=== PATIENT | female | born 1990 | race Caucasian/White ===

== ENCOUNTER → 2020-06-11 16:28 | Outpatient (CLI) | payer MEDICAID, SELFPAY ==
[2016-07-15 16:40] VITALS: BMI 39.2
[2020-06-12 09:53] LABS: HIV - WCH Non-Reactive (Nonreactive); Hepatitis B Surface Antigen Non-Reactive (Nonreactive); Hepatitis C Antibody Non-Reactive (Nonreactive)
[2020-06-13 11:06] LABS: Rapid Plasmin Reagin (RPR) NONREACTIVE (NONREACTIVE)
[2020-06-14 03:06] LABS: Chlamydia By Nucleic Acid AMP Negative (Negative)
[2020-06-14 04:42] LABS: Gonococcus By Nucleic Acid AMP Negative (Negative)
[2020-06-21 16:22] LABS: HPV Reflexed? NOT INDICATED
== END ==
PROVIDERS: Visit Provider Obstetrics & Gynecology
DX: Z12.4 Encounter for screening for malignant neoplasm of cervix (principal); Z11.3 Encounter for screening for infections with a predominantly sexual mode of transmission
CPT/HCPCS: 36415; 86592; 86703; 86803; 87340; 87491; 87591; 88175; G0145

== ENCOUNTER 2020-08-23 11:37 | Emergency (ER) | payer MEDICAID, SELFPAY ==
[2020-08-23 11:38] VITALS: BP 166/98; PULSE 101; RESP 16; TEMP 36.6; O2SAT 97; BMI 29.9
[2020-08-23 11:57] LABS: Bacteria 0 SEEN /hpf (None Seen); Mucous, Urine 0 SEEN /hpf (<or=2+); Red Blood Cells-Urine 0 SEEN /hpf (0-5); White Blood Cells 0 SEEN /hpf (0-5)
[2020-08-23 12:06] LABS: Color, Urine Yellow (Yellow); Glucose, Dipstick Normal (Normal); Ketone-Dipstick 5 mg/dl (Negative); Leukocyte Esterase-Dipstick Negative /ul (Negative); Nitrite-Dipstick Negative (Negative); Occult Blood-Urine Negative /ul (Negative); Protein-Dipstick Negative (Negative); Specific Gravity, Urine 1.005 (1.002-1.030); Urine Bilirubin Dipstick Negative (Negative); Urine Clarity Sl. Cloudy (Clear); Urine Urobilinogen Normal (Normal); Urine pH 6.5 (5.0 - 8.0)
[2020-08-23 12:13] LABS: Squamous Epithelial Cells - UA 0-5 SEEN /hpf (5-10)
[2020-08-23 12:14] LABS: Internal QC Validated? YES +Cl - CLEAR BKGD; Pregnancy, Urine Negative Negative
--- NOTE | 2020-08-23 12:28 | US_ITS ---
STUDY: ULTRASOUND OF THE FEMALE PELVIS - COMPLETE REASON FOR EXAM: Female, 29 years old. Pain RLQ LMP: 08/09/2020. TECHNIQUE: Transvaginal TECHNICAL QUALITY: Adequate. COMPARISON: None. FINDINGS: The uterus is anteverted and is in a midline position. The uterus measures 10 cm x 6.6 cm x 5.3 cm. Normal uterine cervix. The endometrium measures 4.0 mm in thickness, and is hyperechoic. There is no demonstrated endometrial mass. There is no demonstrated myometrial mass. I.U.D. - The patient does not have an I.U.D. The right ovary is visualized. The right ovary measures 3.2 cm x 2.3 cm x 2.0 cm. There is no right ovarian cyst or ovarian mass. There is no visualized right adnexal mass or complex lesion. There is normal arterial and normal venous vascularity. The left ovary is visualized. The left ovary measures 3.2 cm x 2.9 cm x 2.6 cm. There is no left ovarian cyst or ovarian mass. There is no visualized left adnexal mass or complex lesion. There is normal arterial and normal venous vascularity. There is no fluid in the cul-de-sac. US/Transvaginal Non- IMPRESSION: Normal female pelvis. Electronically Signed: Wood Olvera, at 14:25 EDT , Service support ,
[2020-08-23 12:56] LABS: Absolute Lymphocyte Count 2.28 X10^3/uL (0.83-4.51); Absolute Neutrophil Count 4.3 X10^3/uL (2.0-7.7); Basophil# 0.03 X10^3/uL; Basophil% 0.4 % (0-1); Eosinophil# 0.04 X10^3/uL; Eosinophils% 0.6 % (0-5); Hematocrit 46.2 % (37-47); Lymphocyte # 2.28 X10^3/ul (4.0); Lymphocyte % 31.6 % (19-41); Mean Corp Hgb Conc 32.5 g/dL (32-36); Mean Corpuscular Hgb 29.9 pg (27.0-32.0); Mean Corpuscular Volume 92.2 fL (81-99); Mean Platelet Vol. 9.6 fl (6.2-12.0); Monocyte# 0.56 X10^3/uL; Monocyte% 7.8 % (0-10); NRBC Flagged by Analyzer 0 % (0-5); Neutrophil # 4.29 X10^3/uL (2.7-7.7); Neutrophil % 59.3 % (47-70); Platelet Count 235 K/mm3 (150-450); RBC Distribution Width CV 13.2 % (11.6-14.6); RBC Distribution Width SD 44.9 fl (35.1-43.9); Red Blood Count 5.01 M/mm3 (4.2-5.4); White Blood Count 7.2 K/mm3 (4.4-11.0)
--- NOTE | 2020-08-23 12:57 | ED.VIS.FEGU ---
History of Present Illness Informant: Patient Pain: Pelvic Pain Onset: Yesterday Context: Gradual Onset Timing: Continuous Quality: Cramping Location: RLQ Current Severity: Moderate Maximum Severity: Moderate Worsened by: Movement Issue: Negative for: Vaginal bleeding, Passing clots, Passing tissue Associated Symptoms: Dysuria, Frequency, Urgency. Negative for: Hematuria Test: Negative Sexually: Active, Single Partner Control: No control Narrative: 21-year-old female presents with 2 days of burning with urination frequency and urgency. No vaginal bleeding or discharge. No fevers. No vomiting or diarrhea. No abdominal pain. No back pain. No history of similar. No history of kidney stones. She did have unprotected intercourse last week. Prior similar symptoms: No Recent Illness/Hospitalization: No <Esteban Eldridge - Last Filed: 08/23/20 14:33> <Rick Fisher - Last Filed: 08/23/20 16:06> Chief Complaint: Complaint Past Medical History Prior records reviewed: Yes Past Medical History: None Surgical History: no surgical history Lives: With Family Smoking Status: Former smoker Alcohol: Occasional Drugs: None <Esteban Eldridge - Last Filed: 08/23/20 14:33> <Rick Fisher - Last Filed: 08/23/20 16:06> - Allergies and Home Meds Allergies/Adverse Reactions: Allergies No Known Allergies Allergy (Verified 08/23/20 11:40) Primary Care Physician: Marissa Ross MD [STAFF PHYSICIAN] - Review of Systems All systems negative except as indicated General: Denies: Chills, Fever, Sweats Eyes: Denies: Visual changes - bilaterally, Diplopia ENT: Denies: Rhinorrhea, Sore throat Cardiovascular: Denies: Chest pain, Palpitations Respiratory: Denies: Dyspnea, Cough, Dyspnea on exertion Gastrointestinal: Reports: Abdominal pain. Denies: Nausea, Vomiting, Diarrhea, Melena, Hematochezia Genitourinary: Reports: Dysuria, Frequency. Denies: Hematuria Musculoskeletal: Denies: Back pain, Swelling, Extremity Pain Skin: Denies: Rash, Wounds Neurological: Denies: Headache, Weakness, Numbness <Esteban Eldridge - Last Filed: 08/23/20 14:33> Physical Exam Vital Signs/Narrative: Vital Signs Temp Pulse Resp BP Pulse Ox 08/23/20 11:38 97.9 F 101 H 16 166/98 H 97 Inital Vital Signs reviewed: Yes General: Well nourished, Well developed Head: Normocephalic, Atraumatic Eyes: Perrl, EOMI ENT: Moist mucous membranes, No rhinorrhea Neck: Supple, Nontender Cardiovascular: Regular rate, Regular rhythm, No murmurs Respiratory: No distress, CTA bilaterally, Chest nontender Abdomen: Soft, Nontender, Nondistended, Normal bowel sounds : Speculum exam: Normal external genitalia, No vaginal lesions, No vaginal discharge, No blood in vault, No active bleeding Bimanual exam: No cervical motion tenderness, Os closed, Normal size uterus, Nontender uterus Back: Nontender, Normal Inspection Extremities: Nontender, No edema Skin: Normal color, No rash Neurological: Alert, Oriented x3, Cranial nerves II-XII grossly intact, Normal Strength, Normal Sensation Psychological: Normal affect <Esteban Eldridge PA - Last Filed: 08/23/20 14:33> Diagnostic/Tx/Re-eval Pelvic US: Normal, TV Impressions Transvaginal US 08/23/20 12:28 IMPRESSION: Normal female pelvis. Electronically Signed: Wood Clevejohnmoed, at 14:25 EDT , Service support , 08/23/20 12:28 Transvaginal Non- [US] Stat Laboratory Results 08/23/20 08/23/20 08/23/20 11:55 12:40 12:40 WBC 7.2 RBC 5.01 Hgb 15.0 Hct 46.2 MCV 92.2 MCH 29.9 MCHC 32.5 RDW Std Deviation 44.9 H RDW Coeff of Jeyson 13.2 Plt Count 235 MPV 9.6 Immature Gran % (Auto) 0.300 Neut % (Auto) 59.3 Lymph % (Auto) 31.6 [place] % (Auto) 7.8 Eos % (Auto) 0.6 Baso % (Auto) 0.4 Absolute Neuts (auto) 4.3 Absolute Lymphs (auto) 2.28 Nucleated RBC % 0 Sodium 140 Potassium 3.7 Chloride 107 Carbon Dioxide 24.0 Anion Gap 9 BUN 5 L Creatinine 0.68 Estim Creat Clear Calc 110.83 Est GFR (MDRD) Af Amer 132 Est GFR (MDRD) Non-Af 109 BUN/Creatinine Ratio 7.4 L Glucose 89 Calcium 9.2 Urine Color Yellow Urine Clarity Sl. Cloudy Urine pH 6.5 Ur Specific [place] 1.005 Urine Protein Negative Urine Glucose (UA) Normal Urine Ketones 5 H Urine Occult Blood Negative Urine Nitrite Negative Urine Bilirubin Negative Urine Urobilinogen Normal Ur Leukocyte Esterase Negative Urine RBC 0 SEEN Urine WBC 0 SEEN Ur Squamous Epith Cells 0-5 SEEN Urine Bacteria 0 SEEN Urine Mucus 0 SEEN Urine Test Negative Chlamydia DNA (LESLEE) N.gonorrhoeae DNA (LESLEE) 08/23/20 13:00 WBC RBC Hgb Hct MCV MCH MCHC RDW Std Deviation RDW Coeff of Jeyson Plt Count MPV Immature Gran % (Auto) Neut % (Auto) Lymph % (Auto) [place] % (Auto) Eos % (Auto) Baso % (Auto) Absolute Neuts (auto) Absolute Lymphs (auto) Nucleated RBC % Sodium Potassium Chloride Carbon Dioxide Anion Gap BUN Creatinine Estim Creat Clear Calc Est GFR (MDRD) Af Amer Est GFR (MDRD) Non-Af BUN/Creatinine Ratio Glucose Calcium Urine Color Urine Clarity Urine pH Ur Specific [place] Urine Protein Urine Glucose (UA) Urine Ketones Urine Occult Blood Urine Nitrite Urine Bilirubin Urine Urobilinogen Ur Leukocyte Esterase Urine RBC Urine WBC Ur Squamous Epith Cells Urine Bacteria Urine Mucus Urine Test Chlamydia DNA (LESLEE) Cancelled N.gonorrhoeae DNA (LESLEE) Cancelled - Treatment/Re-Evaluation Re-Evaluation: Taking PO Re-Examination: Improved, Soft, Nontender - Medical Decision/Diagnostic Studies GC and Chlamydia cultures sent: Yes Patient declined analgesia. Urinalysis shows no sign of infection. Her was negative. Laboratory work-up unremarkable. Her transvaginal ultrasound was unremarkable as well. We sent off GC and Chlamydia cultures. She will follow-up for results. She will be discharged home. Will prescribe Pyridium. Safe sexual practices discussed <Esteban Eldridge - Last Filed: 08/23/20 14:33> - Medical Decision/Diagnostic Studies Patient seen independently and examined in concert with physician insurance account assistant. No evidence of UTI. negative. Lab work within normal limits. Transvaginal ultrasound negative. Patient did have unprotected sex 1 week prior to these symptoms. There is were sent off for gonorrhea and chlamydia. Patient was given Pyridium. Asked to return for new or worsening symptoms. Patient agreeable and discharged home in stable condition. <Rick Fisher - Last Filed: 08/23/20 16:06> ED Disposition <Esteban Eldridge - Last Filed: 08/23/20 14:33> <Rick Fisher - Last Filed: 08/23/20 16:06> - Plan for ED Patient: Disposition: Home or Assisted Living Diagnosis: Dysuria Instructions: ED Dysuria Uncertain Cause Prescriptions: Phenazopyridine [Pyridium] 100 mg PO TID #8 tab Transmission Status: Received by [id number] Referrals: Marissa Ross MD [STAFF PHYSICIAN] -
[2020-08-23 13:02] LABS: Anion Gap 9 (5-15); BUN 5 mg/dL (7-18); BUN/Creat Ratio 7.4 RATIO (10-20); Calcium,Total 9.2 mg/dL (8.5-10.1); Chloride 107 mmol/L (98-107); Creatinine, Serum 0.68 mg/dL (0.55-1.02); EST Glomerular Filtration Rate 109 mL/min (>60); Est Glom Filt Rate - Afr Amer 132 mL/min (>60); Estimated Creatinine Clearance 110.83 ml/min; Glucose 89 mg/dL (74-106); Potassium 3.7 mmol/L (3.5-5.1); Sodium Level 140 mmol/L (136-145)
[2020-08-23 15:01] LABS: Chlamydia Trachomatis by PCR Negative (Negative); Neisserai gonorrhoeae by PCR Negative (Negative); Probe Check PASS; Sample Adequacy Control PASS; Specimen Processing Control PASS
== END 2020-08-23 15:02 | disposition home or self-care (01) ==
PROVIDERS: Emergency Provider Physician Assistant Medical
DX: R30.0 Dysuria (principal); R35.0 Frequency of micturition; R39.15 Urgency of urination; Z87.891 Personal history of nicotine dependence
CPT/HCPCS: 76830; 80048; 81001; 81025; 85025; 87491; 87591; 93976; 99282